=== PATIENT | male | born 1975 | race Caucasian/White ===

== ENCOUNTER 2018-01-10 00:33 | Day surgery (SDC) | payer BC ==
[2018-01-06 14:36] VITALS: BP 135/79
[2018-01-06 15:30] LABS: BASOPHIL % 0.1 % (0.0-0.2); EOSINOPHIL # 0.1 10^3/uL (0.0-0.2); EOSINOPHIL % 0.7 % (0.0-5.0); LYMPHOCYTES # 1.9 10^3/uL (1.0-4.8); LYMPHOCYTES % 26.6 % (24.0-44.0); MEAN CELL HGB 28.3 pg (26-34); MEAN CELL HGB CONCENTRATION 34.1 g/dL (33-37); MEAN PLATELET VOLUME 10.3 fL (7.8-11.0); MONOCYTES # 0.5 10^3/uL (0.3-0.8); NEUTROPHIL # 4.7 10^3/uL (1.8-7.7); NEUTROPHILS % 65.5 % (41.0-85.0); RED CELL DISTRIBUTION WIDTH 12.9 % (11.5-14.5); WHITE BLOOD CELL 7.1 10^3/uL (4.5-11.0)
[2018-01-06 15:52] LABS: CALCIUM 9.1 mg/dL (8.4-10.5); CARBON DIOXIDE 26.8 mmol/L (20.0-32)
[~2018-01-10] VITALS: Ht 182.9 cm; Wt 102.1 kg
[2018-01-10] VITALS (14 sets, daily range): BP systolic 110–137; BP diastolic 64–81
[~2018-01-10 00:33] MED LIST: ALPR0.25 PO; LAMO25TA5 PO
[2018-01-10] MEDS ORDERED: MEFOXIN ONE (05:32)
[2018-01-10] MEDS ORDERED: NS 100ML 100 ML IV ONE (05:32)
[2018-01-10] MEDS ORDERED: LACTATED RINGERS 1,000 ML ONE ×3 (05:32→10:16)
[2018-01-10] MEDS ORDERED: LOVENOX SQ ONE ×2 (05:33→06:30)
[2018-01-10] MEDS ORDERED: DECADRON ONE (06:27)
[2018-01-10] MEDS ORDERED: LIDOCAINE 2% VIAL ONE (06:27)
[2018-01-10] MEDS ORDERED: NEOSTIGMINE ONE (06:27)
[2018-01-10] MEDS ORDERED: TORADOL ONE (06:28)
[2018-01-10] MEDS ORDERED: ZEMURON IV ONE (06:28)
[2018-01-10] MEDS ORDERED: VERSED ONE (06:28)
[2018-01-10] MEDS ORDERED: DIPRIVAN IV ONE (06:28)
[2018-01-10] MEDS ORDERED: ZOFRAN ONE ×2 (06:28→09:55)
[2018-01-10] MEDS ORDERED: SUBLIMAZE ONE (06:28)
[2018-01-10] MEDS ORDERED: QUELICIN ONE (06:28)
[2018-01-10] MEDS: LACTATED RINGERS 1,000 ML IV SCH ×2 (06:47→10:18)
[2018-01-10] MEDS ORDERED: SODIUM CHLORIDE IR ONE (07:12)
[2018-01-10] MEDS ORDERED: SENSORCAINE-MPF 0.25% VIAL ONE (07:12)
[2018-01-10] MEDS ORDERED: TRIPLE ANTIBIOTIC OINTMENT TP ONE (08:11)
[2018-01-10] MEDS ORDERED: ZOFRAN IV PRN ×2 (09:00)
[2018-01-10] MEDS ORDERED: SUBLIMAZE IV PRN (09:00)
[2018-01-10] MEDS ORDERED: DILAUDID IV PRN (09:00)
[2018-01-10] MEDS ORDERED: MORPHINE SULFATE IV PRN (09:00)
[2018-01-10] MEDS ORDERED: NORCO 5MG PO PRN (09:00)
[2018-01-10] MEDS ORDERED: EXPAREL 133 MG/10 ML VIAL IJ ONE (09:25)
--- NOTE | 2018-01-10 10:18 | OPH ---
DATE OF SURGERY: 01/10/2018 PREOPERATIVE DIAGNOSIS: Umbilical hernia. POSTOPERATIVE DIAGNOSIS: Incarcerated umbilical hernia. SURGEON: Arden Abbott DO TOOL AND DIE MAKER/DESIGNER: OR staff. ANESTHESIA: General by Rogelio Segovia CRNA plus local used on the field. PROCEDURE PERFORMED: Open hernia repair. SPECIMENS: Hernia sac and contents to path. ESTIMATED BLOOD LOSS: 7 mL. COUNTS: At the completion of the case, the counts were correct per OR staff. DESCRIPTION OF PROCEDURE: The patient is a very pleasant 42-year-old male known from previous evaluation. Prior to procedure, informed consent was obtained. At the time of procedure, he was taken to the operative suite and placed in supine position. After time-out was completed, general anesthesia was obtained. His abdomen was prepped and draped in normal fashion. Local was used to anesthetize the periumbilical region. Semicircular incision was created. Electrocautery was used to completely dissect down to the level of the sac, which was dissected from surrounding contents bluntly and sharply. The umbilical stalk was amputated from the sac and contents. With adequate mobilization and exposure of the base of the sac, it was opened and this was noted to be incarcerated fat, which was divided with the sac using electrocautery. Once the sac and contents were amputated they are passed off the field. Any bleeding identified was controlled with electrocautery. To allow adequate exposure, the fascia was cleared and superficially using electrocautery. With good exposure of the fascia, it was repaired with a running #2 PDS suture. After the repair was completed, the wound bed was copiously irrigated and closure was pursued. Prior to completion of the closure, a 10 mL of Exparel was brought on the field and mixed with the remaining 0.25% Marcaine. The deep block and superficial blocks placed around the margins of the incision. The umbilical stalk was reapproximated to the fascia using interrupted 2-0 Vicryl. The deep tissue closed with interrupted 2-0 Vicryl, subcutaneous was closed with interrupted 3-0 Vicryl and skin was closed with 4-0 Monocryl in running subcutaneous fashion. The patient was cleaned. Sterile dressings were applied. Drapes removed. The patient tolerated this procedure well. There were no acute complications noted. Arden Abbott DO DR: SKY/ruddy JOB# [id number] BEATRIZ
[2018-01-10] MEDS ORDERED: GENASYME ONE (11:29)
[2018-01-10] MEDS ORDERED: GENASYME PO ONE (11:30)
== END 2018-01-10 11:55 | disposition home or self-care (01) ==
LOC: SDC 00:33
PROVIDERS: ATTEND Surgery
DX: K42.0 Umbilical hernia with obstruction, without gangrene (principal); F41.9 Anxiety disorder, unspecified; F32.9 Major depressive disorder, single episode, unspecified; E66.9 Obesity, unspecified; Z79.899 Other long term (current) drug therapy; Z68.30 Body mass index [BMI] 30.0-30.9, adult; Z91.010 Allergy to peanuts; Z88.1 Allergy status to other antibiotic agents; Z88.0 Allergy status to penicillin; Z98.41 Cataract extraction status, right eye; Z98.890 Other specified postprocedural states; Z82.49 Family history of ischemic heart disease and other diseases of the circulatory system; Z82.5 Family history of asthma and other chronic lower respiratory diseases
CPT/HCPCS: 36415; 49587; 80053; 85025; 85610; 85730; 88302; A4217; J0330; J1100; J1650; J1885; J2001; J2250; J2405 ×2; J2710; J3010; J3490 ×3; J7050; J7120 ×3; J0694